=== PATIENT | female | born 2000 | race Caucasian/White ===

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

== ENCOUNTER → 2022-02-07 | Outpatient (CLI) | payer OTHER, SELFPAY | END | disposition home or self-care (01) | PROVIDERS: PCP Family Medicine; Visit Provider Obstetrics & Gynecology | DX: Z11.3 Encounter for screening for infections with a predominantly sexual mode of transmission (principal); N77.1 Vaginitis, vulvitis and vulvovaginitis in diseases classified elsewhere; N76.0 Acute vaginitis ==

== ENCOUNTER → 2022-05-14 | Outpatient (CLI) | payer OTHER, SELFPAY ==
[2022-05-16 22:06] LABS: Chlamydia By Nucleic Acid AMP Negative (Negative)
[2022-05-17 17:08] LABS: Gonococcus By Nucleic Acid AMP Negative (Negative)
== END | disposition home or self-care (01) ==
LOC: LABSPEC 11:49
PROVIDERS: PCP Family Medicine; Visit Provider Student in an Organized Health Care Education/Training Program
DX: Z11.3 Encounter for screening for infections with a predominantly sexual mode of transmission (principal)
CPT/HCPCS: 87491; 87591

== ENCOUNTER 2022-08-17 08:07 | Emergency (ER) | payer OTHER, SELFPAY ==
[2022-08-17 08:08] VITALS: BP 108/71; PULSE 81; RESP 16; TEMP 36.6; O2SAT 99; BMI 22.7
--- NOTE | 2022-08-17 08:19 | EKG12_ITS ---
Test Reason : syncope Blood Pressure : / mmHG Vent. Rate : 061 BPM Atrial Rate : 061 BPM P-R Int : 118 ms QRS Dur : 086 ms QT Int : 410 ms P-R-T Axes : 057 072 067 degrees QTc Int : 412 ms Normal sinus rhythm Normal ECG Confirmed by LY KEBEDE, EUNICE ([id number]), editor at large SHRUTI MCKEON ([id number]) on 08/19/2022 11:25:07 AM Referred By: Confirmed By:EUNICE MODI MD
--- NOTE | 2022-08-17 08:20 | EDS_ITS ---
HPI History of Present Illness Chief Complaint: Syncope Informant: patient Onset/Context/Timing Onset: Today Context: Sudden Onset Timing: Intermittent Current Severity: Gone Maximum Severity: Mild Narrative Narrative: 22-year-old female no seen past medical history. He listed anemia said she is never been transfused anything. Working here in [employer]. 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 Prior to the event and said she felt fine. She did not eat breakfast this morning but states that is not uncommon she had at least 2 meals yesterday. She did not injure herself when she went down. They checked her blood sugar it was normal. She denies any headache or chest pain. No abdominal pain. No shortness of breath. She denies any recent illness. Her last menstrual period was about a month ago and she is currently on control. She denies any nausea, vomiting or diarrhea. She denies any dysuria. No fever. No heavy bleeding. Currently feels fine. Prior similar symptoms: No Recent Illness/Hospitalization: No PFSH PFSH Medical History Anemia Anemia Bloating Constipation by delayed colonic transit Injury of back Non-smoker Polycystic ovaries Vitamin D deficiency Wears contact lenses Home Medications norethindrone 1 mg-ethinyl estradiol 20 mcg (24)-iron 75 mg (4) tablet (Blisovi 24 Fe) 1 tab PO DAILY 08/23/21 [History Last Taken Unknown] Allergy/AdvReac Type Severity Reaction Status Date / Time No Known Allergies Allergy Verified 01/29/22 11:49 Surgical History History of esophagogastroduodenoscopy (EGD) Hx of decompression of ulnar nerve Hx of wisdom tooth extraction Social History Smoking Status: Never smoker ROS ROS ED ROS Narrative No recent illness. Review of Systems ROS Unobtainable: Denies due to encephalopathy Constitutional Constitutional ED: Denies chills or fever(s) Eyes Eyes: Denies blurry vision ENT ENT ED: Denies ear pain Cardiovascular Cardiovascular: Denies chest pain Respiratory/Chest Respiratory/Chest: Denies cough or dyspnea Gastrointestinal Gastrointestinal: Denies abdominal pain Genitourinary Genitourinary ED: Denies dysuria or hematuria Musculoskeletal Musculoskeletal: Denies arthralgias Integumentary Denies abscess Neurologic Neurologic: Denies headache(s) Psychiatric Psychiatric: Denies anxiety or depression Endocrine Endocrinology: Denies cold intolerance Hematologic/Lymphatic Hematologic/Lymphatic: Reports none Allergic/Immunologic Allergic/Immunologic ED: Denies mouth swelling, tongue swelling or urticaria EXAM Physical Exam Narrative Exam Narrative: 22-year-old female no acute distress. Vital signs stable afebrile. Pulse ox 99% on room air no signs of hypoxia. H EENT exam unremarkable. Pupils are reactive light. No signs of trauma to her face or head. Nontender. Back nontender. Neck nontender no lymphadenopathy. Lungs clear to auscultation bilaterally. Heart regular rate and rhythm rate about 80 no murmur. Chest wall nontender. Abdomen soft nontender. No peritoneal signs. Moving all 4 extremities. 5 out of 5 superintendent sanitation strength. Dorsi plantarflexion intact. Calves are nontender without edema. Neurologically she is awake and alert with no focal motor deficits. NIH is 0. Normal speech. Const Vital Signs: 08/17/22 08:08 08/17/22 08:23 08/17/22 08:34 Temperature 97.8 F Temperature Source Temporal Pulse Rate 81 Pulse Rate [Lying] 63 Pulse Rate [Sitting (for 1 minute prior to obtaining)] 65 Pulse Rate [Standing (for 1 minute prior to obtaining)] 85 Respiratory Rate 16 Respiratory Effort Normal Respiratory Pattern Normal Blood Pressure 108/71 Blood Pressure [Lying] 103/68 Blood Pressure [Sitting (for 1 minute prior to obtaining)] 105/71 Blood Pressure [Standing (for 1 minute prior to obtaining)] 105/72 Blood Pressure Mean 83 Blood Pressure Mean [Lying] 79 Blood Pressure Mean [Sitting (for 1 minute prior to obtaining)] 82 Blood Pressure Mean [Standing (for 1 minute prior to obtaining)] 83 Pulse Ox 99 Oxygen Delivery Method Room Air Positive well nourished and well developed; Negative for obese, cachectic, contractures or unkempt General Appearance ED: well developed and NAD; Negative for unkempt, cachectic, contractures, cyanotic, diaphoretic or pallor Nutritional Appearance: Negative for cachectic or obese HEENT Reports moist mucous membranes; Denies dry mucous membranes Negative for trauma or tenderness Mouth ED: No dry mucous membranes Mouth: No dry mucous membranes Eyes PERRL and EOMs intact bilaterally General Eye ED: Negative for pale conjunctiva, scleral icterus or other Neck no lymphadenopathy, supple and no JVD General: Negative for tenderness Lymph Lymphatic: Negative for other Chest Wall inspection of chest normal and palpation of chest normal Chest: Negative for other Resp normal respiratory effort and clear to auscultation bilaterally Effort and Inspection: Negative for retractions Auscultation: Negative for rales, rhonchi or wheezes Cardio regular rate, regular rhythm, S1 normal heart sound, S2 normal heart sound and no murmurs Palpation: Negative for palpable S3 Rate: Negative for bradycardia Rhythm: Negative for abnormal rhythm GI normal to inspection, nondistended, normoactive bowel sounds, non-tender, non- distended and no masses; Negative for hepatosplenomegaly Inspection: Negative for abdominal distention Auscultation: normoactive bowel sounds Palpation: soft; Negative for tender, guarding or rebound tenderness present Back/Spine no CVA tenderness General Back: Negative for CVA tenderness Cervical Spine: Negative for cervical spine tenderness Thoracic Spine / Upper Back: Negative for thoracic spinal tenderness or paraspinal muscle tenderness Lumbar Spine / Lower Back: Negative for lumbar spinal tenderness Extremity normal to inspection General Extremety ED: Negative for edema or tenderness General Extremity: Negative for edema Neuro oriented x3, CN's II-XII intact bilaterally and no sensory deficits noted Sensorium / Orientation: alert; Negative for orientation impaired, lethargic or stuporous Sensory Exam: No sensory level loss detected Motor Exam: strength 5/5 throughout; Negative for general weakness or strength abnormal Psych mental status grossly normal Appearance: Negative for unkempt Attitude: No agitated Mood & Affect: Negative for depressed, anxious or tearful Skin no rashes or lesions noted, no wounds and No skin turgor normal General Skin Exam: elasticity normal; Negative for jaundice or pallor Lesions: No lesion noted Rashes: No rashes noted Trauma: Negative for abrasion Wounds: Negative for wounds noted MDM MDM MDM Narrative Medical decision making narrative: 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 No recent illnesses or complaints. No prior history. Completely normal exam. EKG will be obtained. Repeat exam patient is doing well at 8:42 AM. She got up out of bed ambulate without any difficulty. Nurses did orthostatic vital signs which were unremarkable. Clinically I do not think she is significantly anemic she is having no symptoms and has not had any recently. I do not think she needs lab work. She is comfortable with that. She understands if she has recurrent syncopal episodes that we need to do further evaluation. She will be discharged and can return to work. Rhythm Strip Rhythm Strip: Sinus Rhythm Rate: 61 Ectopy: None EKG Initial EKG: Attestation: I personally reviewed and interpreted this EKG as follows: Interpretation: Sinus Rhythm and No Acute Injury Pattern Comments: Normal sinus rhythm rate of 61 no acute signs of CT nor ischemia nor any dysrhythmia. Prior EKG tracings: not available for review Discharge Plan Triage Chief Complaint: Syncope ED Provider: Sam Donald Dx/Rx/DC Orders Clinical Impression: Syncope Instructions: Causes of Syncope Prescriptions: No Action norethindrone-e.estradiol-iron [Blisovi 24 Fe] 1 mg-20 mcg (24)/75 mg (4) tablet 1 tab PO DAILY Primary Care Provider: Nahum Ibarra Referrals: Nahum Ibarra DO [Primary Care Provider] - As Needed Activity Restrictions/Additional Instructions: Plenty of fluids. Make sure you eat a good lunch today. Try to get some type of snacking before that. If you pass out again we need to do further evaluation including lab work. Your exam today is normal. Your EKG today is normal as are your vital signs. Follow-up with your doctor as needed. Disposition Disposition: Home, Self Care
--- NOTE | 2022-08-17 08:22 | NURSING ---
NO OLD EKGS
[2022-08-17 08:34] VITALS: BP 103/68; BP 105/71; BP 105/72; PULSE 63; PULSE 65; PULSE 85
[2022-08-18 08:26] LABS: Bedside Glucose 100 mg/dL (74-106)
== END 2022-08-17 08:51 | disposition home or self-care (01) ==
LOC: ED 08:48
PROVIDERS: Emergency Provider Emergency Medicine; PCP Family Medicine; Visit Provider Emergency Medicine
DX: R55 Syncope and collapse (principal)
CPT/HCPCS: 82962; 93005; 99283

== ENCOUNTER → 2022-10-29 | Outpatient (CLI) | payer OTHER, SELFPAY ==
--- NOTE | 2022-10-29 09:26 | US_ITS ---
STUDY: ULTRASOUND BREAST - LEFT REASON FOR EXAM: Female, 22 years old. Palpable lump left breast. TECHNIQUE: Axial and longitudinal images of the LEFT breast were performed with a high resolution ultrasound transducer. # OF IMAGES: 34 COMPARISON: None. FINDINGS: LEFT Breast: The upper inner quadrant of the left breast was examined with ultrasound. There is dense fibroglandular tissue. No sonographic abnormality is seen. US/Breast Limited Unilateral IMPRESSION: No sonographic abnormality is seen in the upper inner quadrant of the left breast. ASSESSMENT CATEGORY: BIRADS Category 1: Negative. A letter regarding these results will be sent to the patient by the facility within 30 days. Electronically Signed: Star Martinez MD at 10:37 EST ,
== END | disposition home or self-care (01) ==
PROVIDERS: PCP Family Medicine; Visit Provider Student in an Organized Health Care Education/Training Program
DX: N63.21 Unspecified lump in the left breast, upper outer quadrant (principal)
CPT/HCPCS: 76642

== ENCOUNTER → 2023-07-29 | Outpatient (CLI) | payer OTHER, SELFPAY ==
[2023-08-06 18:39] LABS: HPV Reflexed? NOT INDICATED
== END | disposition home or self-care (01) ==
LOC: LABSPEC 16:47
PROVIDERS: PCP Family Medicine; Referring Provider Registered Nurse; Visit Provider Registered Nurse
DX: Z12.4 Encounter for screening for malignant neoplasm of cervix (principal)
CPT/HCPCS: 88175; G0145

== ENCOUNTER → 2024-08-26 | Outpatient (CLI) | payer OTHER, SELFPAY ==
[2024-09-05 21:04] LABS: HPV Reflexed? NOT INDICATED
== END | disposition home or self-care (01) ==
LOC: LABSPEC 10:54
PROVIDERS: PCP Family Medicine; Referring Provider Registered Nurse; Visit Provider Registered Nurse
DX: R87.612 Low grade squamous intraepithelial lesion on cytologic smear of cervix (LGSIL) (principal)
CPT/HCPCS: 88175; G0145

== ENCOUNTER 2025-06-06 12:52 | Emergency (ER) | payer OTHER, SELFPAY ==
[2025-06-06 12:53] VITALS: BP 111/69; PULSE 94; RESP 18; TEMP 36.3; O2SAT 100; BMI 23.3
--- NOTE | 2025-06-06 12:57 | EKG12_ITS ---
Test Reason : DIZZY Blood Pressure : */* mmHG Vent. Rate : 69 BPM Atrial Rate : 69 BPM P-R Int : 110 ms QRS Dur : 82 ms QT Int : 400 ms P-R-T Axes : 30 79 65 degrees QTcB Int : 428 ms Sinus rhythm with short DE Otherwise normal ECG Confirmed by LY KEBEDE, EUNICE ([id number]), video news editor JUAN DIEGO WILKS ([id number]) on 06/07/2025 9:10:30 AM Referred By: Confirmed By: EUNICE MODI MD
[2025-06-06 14:21] VITALS: O2SAT 100
[2025-06-06 14:25] LABS: Hematocrit 45.2 % (37-47); Hemoglobin 14.8 g/dL (12.0-15.0); Immature Granulocytes Count 0.020 X10^3/uL (0.0-0.0); Mean Corp Hgb Conc 32.7 g/dL (32-36); Mean Corpuscular Volume 90.0 fL (81-99); Mean Platelet Vol. 10.2 fl (6.2-12.0); NRBC Flagged by Analyzer 0 % (0-5); Platelet Count 258 K/mm3 (150-450); RBC Distribution Width CV 12.4 % (11.6-14.6); RBC Distribution Width SD 41.1 fl (35.1-43.9); Red Blood Count 5.02 M/mm3 (4.2-5.4); White Blood Count 6.6 K/mm3 (4.4-11.0)
[2025-06-06 14:53] VITALS: BP 110/68; PULSE 79; RESP 15; O2SAT 100
[2025-06-06 14:55] LABS: Anion Gap 12 (5-15); BUN 7 mg/dL (4-19); BUN/Creat Ratio 7.6 RATIO (10-20); Calcium,Total 9.5 mg/dL (7.6-11.0); Carbon Dioxide 23.9 mmol/L (21.0-32.0); Chloride 105 mmol/L (98-108); Estimated Creatinine Clearance 85.32 ml/min (50-250); Glucose 83 mg/dL (70-99); Potassium 3.9 mmol/L (3.3-5.1)
--- NOTE | 2025-06-06 15:36 | EX.ED.DYSGE1 ---
HPI History of Present Illness Chief Complaint: Dizziness Detail of Chief Complaint: Dizziness which patient defines as lightheaded and spinning concomitantly Informant: patient and parent Onset/Context/Timing Onset: Days (8 days ago) Context: Sudden Onset Timing: Intermittent Quality: Occurs when she is sitting upright or standing upright. Location: Upright position Current Severity: Mild Maximum Severity: Severe Worsened by: Upright position Relieved by: Supine Associated Symptoms Associated Symptoms: Describes both feeling lightheaded and unsteady. Narrative Narrative: Patient is a 25-year-old female. 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 Having her try to distinguish between the 2 she in my opinion has more lightheadedness than she does vertigo. She does complain of mild headache. She denies double vision, blurred vision or loss of vision. She did have 1 episode of ringing in her ears. She has had no decreased hearing. She denies trouble with speech or swallowing. She has no respiratory or cardiac symptoms. She denies vomiting or diarrhea. She denies melena or maroon stool. She denies any urologic or gynecologic symptoms. She is on control pills. Her last menses was approximately 3 weeks ago. She has no medication allergies. Prior similar symptoms: No Recent Illness/Hospitalization: No PFSH PFSH Medical History Wears contact lenses Anemia Injury of back Non-smoker Bloating Constipation by delayed colonic transit Vitamin D deficiency Polycystic ovaries Anemia Home Medications ?Medication ?Instructions ?Recorded ?Last Taken ?Type norethindrone 1 mg-ethinyl 1 tab PO DAILY #84 tabs 08/26/24 Unknown Rx estradiol 20 mcg (24)-iron 75 mg (4) tablet (Blisovi 24 Fe) Allergy/AdvReac Type Severity Reaction Status Date / Time No Known Allergies Allergy Verified 06/06/25 12:53 Surgical History Hx of decompression of ulnar nerve Hx of wisdom tooth extraction History of esophagogastroduodenoscopy (EGD) Social History household members: family number of children: 0 current occupational status: student 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 sexually active: Yes Smoking Status: Never smoker additional social history: Boyfriend - Dilip works for [employer] ROS ROS ED Constitutional Constitutional ED: Reports fever(s) and subjective; Denies chills or sweats Eyes Eyes: Denies blurry vision, change in vision or diplopia ENT ENT ED: Denies ear pain, rhinorrhea or sore throat Cardiovascular Cardiovascular: Denies chest pain, orthopnea, palpitations, paroxysmal nocturnal dyspnea or racing heartbeat Respiratory/Chest Respiratory/Chest: Denies cough, dyspnea, dyspnea on exertion, orthopnea or paroxysmal nocturnal dyspnea Gastrointestinal Gastrointestinal: Denies abdominal pain, diarrhea, melena, nausea or vomiting Genitourinary Genitourinary ED: Denies dysuria, hematuria or urinary frequency Musculoskeletal Musculoskeletal: Denies arthralgias, back pain or myalgias Integumentary Denies abscess, Abrasions or rash Neurologic Neurologic: Denies headache(s), paresthesias or weakness Psychiatric Psychiatric: Denies anxiety or depression Endocrine Endocrinology: Denies cold intolerance or heat intolerance Hematologic/Lymphatic Hematologic/Lymphatic: Reports systems reviewed and no addt'l complaints, except as documented EXAM Physical Exam Const Vital Signs: 06/06/25 12:53 06/06/25 14:21 06/06/25 14:53 Temperature 97.3 F L Temperature Source Temporal Pulse Rate 94 79 Pulse Rate [Lying] Pulse Rate [Sitting (for 1 minute prior to obtaining)] Pulse Rate [Standing (for 1 minute prior to obtaining)] Respiratory Rate 18 15 Blood Pressure 111/69 110/68 Blood Pressure [Lying] Blood Pressure [Sitting (for 1 minute prior to obtaining)] Blood Pressure [Standing (for 1 minute prior to obtaining)] Blood Pressure Mean 83 82 Blood Pressure Mean [Lying] Blood Pressure Mean [Sitting (for 1 minute prior to obtaining)] Blood Pressure Mean [Standing (for 1 minute prior to obtaining)] Pulse Ox 100 100 100 Oxygen Delivery Method Room Air Room Air 06/06/25 15:53 Temperature Temperature Source Pulse Rate Pulse Rate [Lying] 83 Pulse Rate [Sitting (for 1 minute prior to obtaining)] 94 Pulse Rate [Standing (for 1 minute prior to obtaining)] 95 Respiratory Rate Blood Pressure Blood Pressure [Lying] 112/70 Blood Pressure [Sitting (for 1 minute prior to obtaining)] 111/84 H Blood Pressure [Standing (for 1 minute prior to obtaining)] 115/86 H Blood Pressure Mean Blood Pressure Mean [Lying] 84 Blood Pressure Mean [Sitting (for 1 minute prior to obtaining)] 93 Blood Pressure Mean [Standing (for 1 minute prior to obtaining)] 95 Pulse Ox Oxygen Delivery Method Positive well nourished and well developed General Appearance ED: well developed and NAD; Negative for cyanotic, diaphoretic or pallor HEENT Reports moist mucous membranes HEENT Narrative: Posterior pharynx is normal. Eyes PERRL and EOMs intact bilaterally Eyes Narrative: Patient has nystagmus bilaterally with forced deviation laterally. There is no nystagmus with central gaze. General Eye ED: Negative for pale conjunctiva or scleral icterus Neck no lymphadenopathy, supple and no JVD Chest Wall inspection of chest normal and palpation of chest normal Resp normal respiratory effort and clear to auscultation bilaterally Cardio regular rate, regular rhythm, S1 normal heart sound, S2 normal heart sound and no murmurs GI normal to inspection, nondistended, normoactive bowel sounds, non-tender, non-distended and no masses; Negative for hepatosplenomegaly Back/Spine no CVA tenderness Extremity normal to inspection General Extremety ED: Negative for edema or tenderness General Extremity: Negative for edema Neuro oriented x3, CN's II-XII intact bilaterally and no sensory deficits noted Neuro Narrative: There is no dysmetria. Romberg with eyes open and close was negative. The eye askew test was negative. Eric-Hallpike test was negative. Gait was observed and normal. Able to walk on heels and toes. Able to perform tandem gait without problems. Sensorium / Orientation: alert Motor Exam: strength 5/5 throughout Psych mental status grossly normal Skin no rashes or lesions noted, no wounds and skin turgor normal General Skin Exam: elasticity normal; Negative for jaundice or pallor MDM MDM MDM Narrative Medical decision making narrative: Nurse orders were initiated. Orthostatic vitals were ordered since her symptoms are when she is upright. This is intermittent. Will assess electrolytes for hyponatremia, hypocalcemia doubt the latter since she has a negative [place] sign and is not hyperreflexic. Her reflexes were assessed i.e. Sab, patella and ankle and they were 1-2+. Lab Data Attestation: I reviewed the patient's lab results. Lab results narrative: CBC is unremarkable. BMP is normal Labs: Laboratory Results - last 24 hr 06/06/25 14:12 WBC 6.6 RBC 5.02 Hgb 14.8 Hct 45.2 MCV 90.0 MCH 29.5 MCHC 32.7 RDW Std Deviation 41.1 RDW Coeff of Yadira 12.4 Plt Count 258 MPV 10.2 Immature Gran % (Auto) 0.300 Neut % (Auto) 71.2 H Lymph % (Auto) 19.9 [place] % (Auto) 7.6 Eos % (Auto) 0.5 Baso % (Auto) 0.5 Absolute Neuts (auto) 4.7 Absolute Lymphs (auto) 1.32 Nucleated RBC % 0 Sodium 140 Potassium 3.9 Chloride 105 Carbon Dioxide 23.9 Anion Gap 12 BUN 7 Creatinine 0.96 Estim Creat Clear Calc 85.32 Est GFR (MDRD) Non-Af 86 BUN/Creatinine Ratio 7.6 L Glucose 83 Calcium 9.5 Serum , Qual NEGATIVE Treatment and Re-Evaluation :: Patient's orthostatic vital signs were negative. Patient was asked if she was symptomatic when it was taken and she responded no . Patient and mother were informed of results. They were informed the cause of her symptoms is unknown. Recommend keeping scheduled appointment with Dr. Ibarra. Discharge Plan Triage Chief Complaint: Dizziness ED Provider: Markos Drummond Dx/Rx/DC Orders Clinical Impression: Orthostatic lightheadedness, Hx of gastroesophageal reflux (GERD), Non-celiac gluten sensitivity Instructions: ED Dizziness, Uncertain Cause Prescriptions: No Action Blisovi 24 Fe 1 mg-20 mcg (24)/75 mg (4) tablet 1 tab PO DAILY Qty: 84 5RF Primary Care Provider: Nahum Ibarra Referrals: Nahum Ibarra DO [Primary Care Provider, Family Practice] - Keep K[facility]h appointment Print Language: Japanese Disposition Disposition: Home, Self Care
[2025-06-06 15:53] VITALS: BP 111/84; BP 112/70; BP 115/86; PULSE 83; PULSE 94; PULSE 95
[2025-06-06 16:07] LABS: Internal QC Validated? YES +Cl - CLEAR BKGD; Pregnancy, Serum, hCG Quali. NEGATIVE Negative; Record Kit Lot#, Serum Preg. 980607
[2025-06-06 16:49] VITALS: BP 111/81; PULSE 69; RESP 14; TEMP 36.6; O2SAT 98
== END 2025-06-06 16:50 | disposition home or self-care (01) ==
PROVIDERS: Emergency Provider Emergency Medicine; PCP Family Medicine; Visit Provider Emergency Medicine
DX: R42 Dizziness and giddiness (principal); R51.9 Headache, unspecified; K21.9 Gastro-esophageal reflux disease without esophagitis; K90.41 Non-celiac gluten sensitivity
CPT/HCPCS: 80048; 84703; 85025; 93005; 99285